=== PATIENT | male | born 1975 | race Caucasian/White ===

== ENCOUNTER → 2024-01-04 | Outpatient (CLI) | payer MEDICAID, SELFPAY ==
[2024-01-04 15:55] LABS: Absolute Lymphocyte Count 2.25 X10^3/uL (0.83-4.51); Absolute Neutrophil Count 5.2 X10^3/uL (2.0-7.7); Basophil# 0.05 X10^3/uL; Basophil% 0.6 % (0-1); Eosinophil# 0.23 X10^3/uL; Eosinophils% 2.8 % (0-5); Hematocrit 49.4 % (40-54); Lymphocyte # 2.25 X10^3/ul (0.83-4.51); Lymphocyte % 26.9 % (19-41); Mean Corp Hgb Conc 34.4 g/dL (32-36); Mean Corpuscular Hgb 28.1 pg (27.0-32.0); Mean Corpuscular Volume 81.7 fL (80-94); Mean Platelet Vol. 10.3 fl (6.2-12.0); Monocyte# 0.57 X10^3/uL; Monocyte% 6.8 % (0-10); NRBC Flagged by Analyzer 0 % (0-5); Neutrophil # 5.22 X10^3/uL (2.7-7.7); Neutrophil % 62.5 % (47-70); Platelet Count 319 K/mm3 (150-450); RBC Distribution Width CV 13.6 % (11.6-14.6); Red Blood Count 6.05 M/mm3 (4.6-6.2); White Blood Count 8.4 K/mm3 (4.4-11.0)
[2024-01-04 16:28] LABS: ALB/GLOB Ratio 0.8 RATIO (0.9-2.4); Albumin, Serum 3.5 g/dL (3.2-5.0); Alkaline Phosphatase 71 U/L (45-117); Anion Gap 8 (5-15); BUN 21 mg/dL (7-18); BUN/Creat Ratio 12.1 RATIO (10-20); Calcium,Total 8.3 mg/dL (8.5-10.1); Chloride 105 mmol/L (98-107); Cholesterol 360 mg/dL (200); Creatinine, Serum 1.74 mg/dL (0.70-1.30); EST Glomerular Filtration Rate 45 mL/min (>60); Est Glom Filt Rate - Afr Amer 55 mL/min (>60); Globulin 4.2 g/dL (2.2-4.2); Glucose 147 mg/dL (74-106); High Density Lipoprotein 38 mg/dL; Potassium 4.7 mmol/L (3.5-5.1); Protein, Total 7.7 g/dL (6.4-8.2); Sodium Level 136 mmol/L (136-145); Triglycerides 1509 mg/dL
[2024-01-04 16:47] LABS: HIV - WCH Non-Reactive (Nonreactive); Syphilis Antibodies Non-reactive
[2024-01-04 19:17] LABS: AST(SGOT) 45 U/L (15-37); Alanine Aminotransfer ALT/SGPT 34 U/L (16-61)
[2024-01-06 05:08] LABS: HEPATITIS B SURFACE AG Negative (Negative); Hep B Surface Antibodies Non Reactive (.); Hepatitis B Core Ab Total Negative (Negative); Hepatitis C Ab Non Reactive (Non Reactive)
== END | disposition home or self-care (01) ==
LOC: LAB 15:18
PROVIDERS: PCP Nurse Practitioner Family; Referring Provider Nurse Practitioner Family; Visit Provider Nurse Practitioner Family
DX: I10 Essential (primary) hypertension (principal); E78.5 Hyperlipidemia, unspecified; Z11.3 Encounter for screening for infections with a predominantly sexual mode of transmission
CPT/HCPCS: 36415; 80053; 80061; 84443; 85025; 86703; 86704; 86705; 86706; 86707; 86780; 86803; 87340; 87350; 87491; 87591

== ENCOUNTER 2024-01-23 20:50 | Emergency (ER) | payer MEDICAID, SELFPAY ==
[2024-01-23 20:52] VITALS: BP 143/94; PULSE 77; RESP 18; TEMP 36.4; O2SAT 99; BMI 33.5
--- NOTE | 2024-01-23 22:35 | ED.VIS.DENTA ---
HPI History of Present Illness Chief Complaint: Dental Informant: patient Onset/Context/Timing Onset: Days (2) Context: Gradual Onset Timing: Continuous Quality: Stinging Location: Left upper lateral incisor Worsened by: Breathing, talking, eating Relieved by: - (Nothing) Associated Symptoms Assocated Symptom - Dental: face swelling and hot sensitivity; Negative for fever, jaw swelling or cold sensitivity Narrative Narrative: Patient presents with left upper dental pain that has been getting worse over the past 2 days. Patient states it is his left upper lateral incisor. Patient states the pain is starting to radiate up into his maxillary sinus. Patient states his pain is worse with breathing, talking, and eating. Patient admits to some swelling of his upper jaw. Patient also admits to some hot sensitivity. Patient denies any fevers or chills. Patient denies any difficulty breathing or difficulty swallowing. [facility] Medical History (Updated 01/23/24 @ 22:[address] Troy Morataya DO) Skull fracture Pain, dental Home Medications ?Medication ?Instructions ?Recorded ?Last Taken ?Type clindamycin HCl 300 mg capsule 300 mg PO Q6H #40 CAPSULES 01/23/24 Unknown Rx (Cleocin HCl) Allergy/AdvReac Type Severity Reaction Status Date / Time Penicillins Allergy Hives Verified 01/23/24 20:52 Surgical History (Updated 01/23/24 @ 22:[address] Troy Morataya DO) S/P ORIF (open reduction internal fixation) fracture Social History Smoking Status: Unknown if ever smoked ROS ROS ED Constitutional Constitutional ED: Denies chills or fever(s) Eyes Eyes: Denies blurry vision or change in vision ENT ENT ED: Denies rhinorrhea or sore throat Cardiovascular Cardiovascular: Denies chest pain or palpitations Respiratory/Chest Respiratory/Chest: Denies cough or dyspnea Gastrointestinal Gastrointestinal: Denies nausea or vomiting Genitourinary Genitourinary ED: Denies dysuria or hematuria Musculoskeletal Musculoskeletal: Denies back pain or neck pain Integumentary Denies abscess or rash Neurologic Neurologic: Reports headache(s); Denies weakness Allergic/Immunologic Allergic/Immunologic ED: Denies mouth swelling or urticaria EXAM Physical Exam Const Vital Signs: 01/23/24 20:52 Temperature 97.6 F L Temperature Source Temporal Pulse Rate 77 Respiratory Rate 18 Blood Pressure 143/94 H Blood Pressure Mean 110 Pulse Ox 99 Oxygen Delivery Method Room Air Positive well nourished and well developed General Appearance ED: well developed and NAD HEENT HEENT Narrative: There is a large dental carry noted over the left upper lateral incisor. There are multiple other dental caries noted. There is some mild gingival edema around the left upper lateral incisor area. There is no fluctuance. There is no discharge or drainage. There is mild tenderness over the left maxillary sinus. Teeth and Gingiva: caries, gingiva abnormal Positive for gingival edema and poor dentition Throat: posterior oropharynx normal Neck supple and no JVD General: Negative for anterior neck swelling, tenderness or submandibular swelling Neuro oriented x3, CN's II-XII intact bilaterally, moves all extremities, no focal motor deficits and no sensory deficits noted Sensorium / Orientation: alert Motor Exam: strength 5/5 throughout Psych mental status grossly normal MDM MDM MDM Narrative Medical decision making narrative: Patient was advised that this is most likely infected dental caries. Patient was given a dose of clindamycin here. Patient was given a prescription for clindamycin. Patient states he follows with the [facility] and wants to follow-up with the dentist there. Patient was instructed to take Tylenol for pain since he was only born with 1 kidney. Patient was instructed to follow-up with a dentist in 3 to 5 days. Patient understood and was agreeable with the plan. All questions were answered. Discharge Plan Triage Chief Complaint: Dental ED Provider: Troy Morataya Dx/Rx/DC Orders Clinical Impression: Infected dental caries, Hx of substance abuse Instructions: ED Dental Pain, ED Dental Cavity Prescriptions: New clindamycin HCl [Cleocin HCl] 300 mg capsule 300 mg PO Q6H Qty: 40 0RF Primary Care Provider: Evie Manzanares Referrals: [facility] [Non-Staff] - 3-5 Days Evie Manzanares, [employer] [Primary Care Provider] - Print Language: Mohawk Disposition Disposition: Home, Self Care
[2024-01-23 22:53] VITALS: BP 145/85; PULSE 74; RESP 16; TEMP 36.9; O2SAT 96
[2024-01-23] MEDS: Clindamycin HCl 150 MG Capsule 300 MG PO (22:56)
== END 2024-01-23 22:57 | disposition home or self-care (01) ==
PROVIDERS: Emergency Provider Emergency Medicine; PCP Nurse Practitioner Family; Visit Provider Emergency Medicine
DX: K02.9 Dental caries, unspecified (principal); K04.7 Periapical abscess without sinus
CPT/HCPCS: 99282

== ENCOUNTER → 2024-02-11 | Outpatient (CLI) | payer MEDICAID, SELFPAY ==
--- NOTE | 2024-02-11 08:40 | US_ITS ---
EXAM: US RETROPERITONEAL LIMITED, RENAL CLINICAL INDICATION: DISORDER OF KIDNEY AND URETER TECHNIQUE: Limited grayscale and color Doppler sonographic evaluation of the retroperitoneum was performed. COMPARISON: No relevant prior studies available. FINDINGS: RIGHT KIDNEY: The right kidney is atrophic measuring 7.9 cm in length with cortical thinning measuring 0.6 cm. No hydronephrosis. No shadowing calculus. No perinephric collection is demonstrated. LEFT KIDNEY: No significant abnormality. No hydronephrosis. No shadowing calculus. No perinephric collection is demonstrated. The left kidney is normal measuring 12.8 cm in length. BLADDER: The ureter jets are not visualized. Urinary bladder volume is 91 mL. No wall thickening or other abnormality. US/Kidney and Bladder IMPRESSION: The right kidney is atrophic measuring 7.9 cm in length with cortical thinning measuring 0.6 cm. Normal left kidney and normal urinary bladder. Electronically Signed: Ramos Nelson DO at 14:24 EST ,
== END | disposition home or self-care (01) ==
PROVIDERS: PCP Nurse Practitioner Family; Referring Provider Nurse Practitioner Family; Visit Provider Nurse Practitioner Family
DX: N28.9 Disorder of kidney and ureter, unspecified (principal)
CPT/HCPCS: 76770